=== PATIENT | male | born 1990 | race American Indian/Alaskan Native ===

== ENCOUNTER 2017-11-23 20:12 | Emergency (ER) | payer BC ==
--- NOTE | 2017-11-23 23:39 | C.PDOC ---
History Of Present Illness 27 year old male presents to the ER after a law grape picker machine fell and pinned his right foot. Patient is now complaining of pain to the right foot and great toe area; denies weakness, numbness, or falling. Time Seen by Provider: 11/23/17 22:23 Chief Complaint (Nursing): Lower Extremity Problem/Injury History Per: Patient History/Exam Limitations: no limitations Onset/Duration Of Symptoms: Hrs Current Symptoms Are (Timing): Still Present Recent travel outside of the [place]: No - Ankle/Foot Description Of Injury: Struck With Object Past Medical History Reviewed: Historical Data, Nursing Documentation, Vital Signs Vital Signs: Last Vital Signs Temp 98 F 11/23/17 23:56 Pulse 88 11/23/17 23:56 Resp 18 11/23/17 23:56 BP 160/100 H 11/23/17 23:56 Pulse Ox 99 11/24/17 02:41 - Medical History PMH: Asthma Family History: States: Unknown Family Hx - Social History Hx Alcohol Use: No Hx Substance Use: No - Immunization History Hx Tetanus Toxoid Vaccination: No Hx Influenza Vaccination: No Hx Pneumococcal Vaccination: No Review Of Systems Musculoskeletal: Positive for: Foot Pain Neurological: Negative for: Weakness, Numbness Physical Exam - Physical Exam Appears: Non-toxic, No Acute Distress Skin: Normal Color, Warm, Dry Head: Atraumatic, Normacephalic Eye(s): bilateral: Normal Inspection Extremity: Tenderness (Right 1st MTP and right medial distal foot.), Capillary Refill (<2 seconds), No Deformity, No Swelling Pulses: Left Dorsalis Pedis: Normal, Right Dorsalis Pedis: Normal Neurological/Psych: Oriented x3, Normal Speech, Normal Motor, Normal Sensation ED Course And Treatment O2 Sat by Pulse Oximetry: 99 (room air) Pulse Ox Interpretation: Normal - Other Rad Right foot x-ray X-Ray: Interpreted by Me, Viewed By Me Interpretation: Possible nondisplaced fracture of the 1st MTP, however, could possibly be shadowing. Progress Note: Right foot x-ray ordered, results showed possible nondisplaced fracture of the 1st MTP, however, could possibly be shadowing. Patient placed in ortho shoe and given crutched with instructions by CP and advised to follow up with podiatry for further evaluation or return if symptoms worsen. Disposition Counseled Patient/Family Regarding: Diagnosis, Need For Followup, Rx Given - Disposition Referrals: [facility] [Outside] Podiatry Clinic [Outside] Disposition: HOME/ ROUTINE Disposition Time: 23:37 Condition: STABLE Additional Instructions: Leg elevation Apply ICE to area Motrin for pain Please follow up for BP recheck and management as needed Return to ER if worse Prescriptions: Ibuprofen [Motrin Tab] 800 mg PO QID #24 tab Instructions: Toe Fracture (ED) Forms: [facility] ([place]), Work Excuse - Clinical Impression Clinical Impression: Toe fracture, right, Contusion of foot, right - PA / [facility] / Resident Statement MD/DO has reviewed & agrees with the documentation as recorded. - Scribe Statement The provider has reviewed the documentation as recorded by the Silverioibdiane Browning All medical record entries made by the Gayathri were at my direction and personally dictated by me. I have reviewed the chart and agree that the record accurately reflects my personal performance of the history, physical exam, medical decision making, and the department course for this patient. I have also personally directed, reviewed, and agree with the discharge instructions and disposition.
[2017-11-23 23:57] VITALS: BP 160/100; PULSE 88; RESP 18; TEMP 98
[2017-11-24 02:38] VITALS: O2SAT 99
--- NOTE | 2017-11-24 10:28 | RAD ---
PROCEDURE: Right Foot Radiographs. HISTORY: Foot injury COMPARISON: None. FINDINGS: BONES: Bone alignment and mineralization are normal. There is no acute displaced fracture or bone destruction. JOINTS: Normal. SOFT TISSUES: Normal. OTHER FINDINGS: None. IMPRESSION: No acute fracture or dislocation.
== END 2017-11-24 00:15 | disposition home or self-care (01) ==
LOC: C.ER 20:12
DX: S92.401A Displaced unspecified fracture of right great toe, initial encounter for closed fracture (principal); W31.9XXA Contact with unspecified machinery, initial encounter